=== PATIENT | female | born 1995 | race Caucasian/White ===

== ENCOUNTER 2019-01-21 07:00 | Inpatient (IN) | payer OTHER ==
[2019-01-21] MEDS ORDERED: Sodium Chloride 0.9% 10 ML Syringe FLUSH PRN (07:43)
[2019-01-21] MEDS ORDERED: Ondansetron 4 MG/2 ML SDV IVPUSH PRN (07:43)
[2019-01-21] MEDS ORDERED: Nalbuphine 20 MG/ML 1 ML Syringe IVPUSH PRN (07:43)
[2019-01-21] MEDS ORDERED: Oxytocin/Lactated Ringers 10 UNIT/1,000 ML BAG IV SCH ×2 (07:45)
[2019-01-21] MEDS: Lactated Ringers 1,000 ML IV SCH ×3 (08:01→11:55)
--- NOTE | 2019-01-21 08:49 | PCM.LDHP ---
L&D History of Present Illness - General Date of Service: 01/21/19 Admit Problem/Dx: Patient Status Order with Admit Dx/Problem 01/21/19 07:43 Patient Status [ADT] Routine Admission Diagnosis/Problem Admission Diagnosis/Problem Cholestasis during Source of Information: Patient History Limitations: Reports: No Limitations - History of Present Illness Introduction:: Patient is a 23 y/o at 36 1/7 who presents for IOL for cholestasis. doing well today. Continues to have severe itching on her feet. Notes good FM - Related Data Allergies/Adverse Reactions: Allergies Allergy/AdvReac Type Severity Reaction Status Date / Time No Known Allergies Allergy Verified 12/11/18 02:40 Home Medications: Home Meds Acetaminophen [Tylenol] 650 mg PO Q4H PRN 09/28/16 [History] Vit Calc,Iron,Folic [ Vitamins] 1 tab PO DAILY 09/28/16 [ History] Past Medical History Gastrointestinal History: Reports: Other (See Below) (Cholestasis of 2017) [employer] History: Reports: , Spontaneous : 3 Para: 1 LMP (Approximate): - Past Surgical History HEENT Surgical History: Reports: Tonsillectomy Social & Family History - Family History Family Medical History: Noncontributory - Tobacco Use Smoking Status *Q: Never Smoker - Caffeine Use Caffeine Use: Reports: Soda - Alcohol Use Alcohol Use History: No - Recreational Drug Use Recreational Drug Use: No H&P Review of Systems - Review of Systems: Review Of Systems: See Below General: Reports: No Symptoms Pulmonary: Reports: No Symptoms Cardiovascular: Reports: No Symptoms Gastrointestinal: Reports: No Symptoms Genitourinary: Reports: No Symptoms Musculoskeletal: Reports: No Symptoms Skin: Reports: Pruritis (feet ) Neurological: Reports: No Symptoms L&D Exam - Exam Exam: See Below - Vital Signs Weight: 74.525 kg - OB Specific Contraction Intensity: Irritability Movement: Active Heart Tones: Present Heart Tones per Min: 140 Heart Rate (FHR) Variability: Moderate (6-25 bmp) Presentation: Vertex - Lobo Score Lobo Score Cervix Position: Posterior Lobo Score Consistency: Soft Lobo Score Effacement: 51-70% Lobo Score Dilation: 1-2 cm Lobo Score 's Station: -2 Lobo Score Total: 6 - Exam General: Alert, Oriented, Cooperative Lungs: Clear to Auscultation, Normal Respiratory Effort Cardiovascular: Regular Rate, Regular Rhythm GI/Abdominal Exam: Soft, Non-Tender Genitourinary: Normal external exam Extremities: Normal Inspection Skin: Warm, Dry, Intact - Patient Data Lab Results Last 24 hrs: Laboratory Results - last 24 hr 01/21/19 01/21/19 Range/Units 07:56 07:56 WBC 11.29 H (3.98-10.04) K/mm3 RBC 4.41 (3.98-5.22) M/mm3 Hgb 12.8 (11.2-15.7) gm/L Hct 38.4 (34.1-44.9) % MCV 87.1 (79.4-94.8) fl MCH 29.0 (25.6-32.2) pg MCHC 33.3 (32.2-35.5) g/dl RDW Std Deviation 43.0 (36.4-46.3) fL Plt Count 238 (182-369) K/mm3 MPV 11.2 (9.4-12.3) fl Sodium 137 (136-145) mEq/L Potassium 3.4 L (3.5-5.1) mEq/L Chloride 102 (98-107) mEq/L Carbon Dioxide 20 L (21-32) mEq/L Anion Gap 18.4 H (5-15) BUN 12 (7-18) mg/dL Creatinine 0.9 (0.55-1.02) mg/dL Est Cr Clr Drug Dosing TNP Estimated GFR (MDRD) > 60 (>60) mL/min BUN/Creatinine Ratio 13.3 L (14-18) Glucose 146 H (74-106) mg/dL Calcium 8.9 (8.5-10.1) mg/dL Total Bilirubin 0.6 (0.2-1.0) mg/dL AST 673 H (15-37) U/L ALT 853 H (14-59) U/L Alkaline Phosphatase 115 (46-116) U/L Total Protein 6.8 (6.4-8.2) g/dl Albumin 2.7 L (3.4-5.0) g/dl Globulin 4.1 gm/dL Albumin/Globulin Ratio 0.7 L (1-2) Result Diagrams: 01/21/19 07:56 01/21/19 07:56 - Problem List (1) 36 weeks gestation of SNOMED Code(s): 80076097 ICD Code: Z3A.36 - 36 WEEKS GESTATION OF Status: Acute Current Visit: Yes (2) Cholestasis during SNOMED Code(s): 901956894 ICD Code: O26.619 - LIVER AND BILIARY TRACT DISORD IN , UNSP TRIMESTER; K83.1 - OBSTRUCTION OF BILE DUCT Status: Acute Current Visit: Yes Qualifiers: Trimester: third trimester Qualified Code(s): O26.613 - Liver and biliary tract disorders in , third trimester; K83.1 - Obstruction of bile duct Problem List Initiated/Reviewed/Updated: Yes Orders Last 24hrs: Active Orders 24 hr Category Date Time Status Patient Status [ADT] Routine ADT 01/21/19 07:43 Active Communication Order [RC] ASDIRECTED Care 01/21/19 07:43 Active Communication Order [RC] ASDIRECTED Care 01/21/19 07:43 Active Communication Order [RC] ASDIRECTED Care 01/21/19 07:43 Active Heart Tones [RC] ASDIRECTED Care 01/21/19 07:43 Active Non Stress Test [RC] PER UNIT ROUTINE Care 01/21/19 07:43 Active Notify Provider [RC] ASDIRECTED Care 01/21/19 07:43 Active Notify Provider [RC] PRN Care 01/21/19 07:43 Active Peripheral IV Care [RC] . DIRECTED Care 01/21/19 07:43 Active Up ad Merry [RC] ASDIRECTED Care 01/21/19 07:44 Active Vaginal Exam [RC] ASDIRECTED Care 01/21/19 07:43 Active Vital Signs [RC] ASDIRECTED Care 01/21/19 07:43 Active Regular Diet [DIET] Diet 01/21/19 Breakfast Active RAPID PLASMA REAGIN,RPR [CHEM] Routine Lab 01/21/19 07:56 Received TYPE AND SCREEN [BBK] Routine Lab 01/21/19 07:56 Received Lactated Ringers [Ringers, Lactated] 1,000 ml Med 01/21/19 07:45 Active IV ASDIRECTED Nalbuphine [Nubain] Med 01/21/19 07:43 Active 10 mg IVPUSH Q2H PRN Ondansetron [Zofran] Med 01/21/19 07:43 Active 4 mg IVPUSH Q4H PRN Oxytocin/Lactated Ringers [Pitocin in LR 10 Units/1,000 Med 01/21/19 07:45 Active ML] 10 unit in 1,000 ml IV .CONTINUOUS Oxytocin/Lactated Ringers [Pitocin in LR 10 Units/1,000 Med 01/21/19 07:45 Active ML] 10 unit in 1,000 ml IV TITRATE Sodium Chloride 0.9% [Saline Flush] Med 01/21/19 07:43 Active 10 ml FLUSH ASDIRECTED PRN Electronic Heart Tones Ext w TOCO [WOMSER] Ot 01/21/19 07:43 Ordered Routine Electronic Heart Tones Internal [WOMSER] Per Unit Ot 01/21/19 07:43 Ordered Routine Peripheral IV Insertion Adult [OM.PC] Routine Ot 01/21/19 07:43 Ordered Resuscitation Status Routine Resus Stat 01/21/19 07:43 Ordered Medication Orders Lactated Ringer's (Ringers, Lactated) 1,000 mls @ 40 mls/hr IV ASDIRECTED RADHA Last Admin: 01/21/19 08:01 Dose: 40 mls/hr Oxytocin/Lactated Ringer's (Pitocin In Lr 10 Units/1,000 Ml) 10 unit in 1,000 mls @ 12 mls/hr IV TITRATE RADHA; Protocol Last Admin: 01/21/19 08:02 Dose: 2 munits/min, 12 mls/hr Oxytocin/Lactated Ringer's (Pitocin In Lr 10 Units/1,000 Ml) 10 unit in 1,000 mls @ 500 mls/hr IV .CONTINUOUS RADHA Nalbuphine HCl (Nubain) 10 mg IVPUSH Q2H PRN PRN Reason: pain Ondansetron HCl (Zofran) 4 mg IVPUSH Q4H PRN PRN Reason: Nausea/Vomiting Sodium Chloride (Saline Flush) 10 ml FLUSH ASDIRECTED PRN PRN Reason: Keep Vein Open Assessment/Plan Comment:: 23 y/o at 36 1/7 wks who presents for IOL for cholestasis of * Labs on admission including CMP * GBS negative, no need for antibiotics * Pain management per patient preference * Rouse bulb and pitocin for IOL, AROM when able * Anticipate
[2019-01-21] MEDS ORDERED: diphenhydrAMINE 50 MG/ML SDV IVPUSH PRN (08:56)
[2019-01-21] MEDS ORDERED: fentaNYL/Bupivacaine-NS 2 MCG/ML-0.125%/PF 100 ML Bag EPIDUR PRN (08:56)
[2019-01-21] MEDS ORDERED: fentaNYL 100 MCG/2 ML SDV EPIDUR PRN (08:56)
[2019-01-21] MEDS ORDERED: ePHEDrine 50 MG/ML SDV IVPUSH PRN (08:56)
--- NOTE | 2019-01-21 08:56 | PCM.PREANE ---
Preanesthetic Assessment - Procedure Proposed Procedure: clem - Anesthesia/Transfusion/Family Hx Anesthesia History: Prior Anesthesia Without Reaction Family History of Anesthesia Reaction: No Transfusion History: No Prior Transfusion(s) Type of Transfusion Reactions: Reports: Unknown - Review of Systems General: No Symptoms Pulmonary: No Symptoms, Shortness of Breath (due to baby) Cardiovascular: No Symptoms Gastrointestinal: No Symptoms Neurological: No Symptoms Other: Reports: None - Physical Assessment Pulse: 86 O2 Sat by Pulse Oximetry: 99 Respiratory Rate: 20 Blood Pressure: 104/67 Height: 5 ft 2 in Weight: 74.525 kg ASA Class: 2 Mental Status: Alert & Oriented x3 Airway Class: Mallampati = 1 Dentition: Reports: Normal Dentition Thyro-Mental Finger Breadths: 3 Mouth Opening Finger Breadths: 3 ROM/Head Extension: Full Lungs: Clear to Auscultation, Normal Respiratory Effort Cardiovascular: Regular Rate, Regular Rhythm - Lab Values: Laboratory Last Values WBC 11.29 K/mm3 (3.98-10.04) H 01/21/19 07:56 RBC 4.41 M/mm3 (3.98-5.22) 01/21/19 07:56 Hgb 12.8 gm/L (11.2-15.7) 01/21/19 07:56 Hct 38.4 % (34.1-44.9) 01/21/19 07:56 MCV 87.1 fl (79.4-94.8) 01/21/19 07:56 MCH 29.0 pg (25.6-32.2) 01/21/19 07:56 MCHC 33.3 g/dl (32.2-35.5) 01/21/19 07:56 RDW Std Deviation 43.0 fL (36.4-46.3) 01/21/19 07:56 Plt Count 238 K/mm3 (182-369) 01/21/19 07:56 MPV 11.2 fl (9.4-12.3) 01/21/19 07:56 Sodium 137 mEq/L (136-145) 01/21/19 07:56 Potassium 3.4 mEq/L (3.5-5.1) L 01/21/19 07:56 Chloride 102 mEq/L (98-107) 01/21/19 07:56 Carbon Dioxide 20 mEq/L (21-32) L 01/21/19 07:56 Anion Gap 18.4 (5-15) H 01/21/19 07:56 BUN 12 mg/dL (7-18) 01/21/19 07:56 Creatinine 0.9 mg/dL (0.55-1.02) 01/21/19 07:56 Est Cr Clr Drug Dosing TNP 01/21/19 07:56 Estimated GFR (MDRD) > 60 mL/min (>60) 01/21/19 07:56 BUN/Creatinine Ratio 13.3 (14-18) L 01/21/19 07:56 Glucose 146 mg/dL (74-106) H 01/21/19 07:56 Calcium 8.9 mg/dL (8.5-10.1) 01/21/19 07:56 Total Bilirubin 0.6 mg/dL (0.2-1.0) 01/21/19 07:56 AST 673 U/L (15-37) H 01/21/19 07:56 ALT 853 U/L (14-59) H 01/21/19 07:56 Alkaline Phosphatase 115 U/L (46-116) 01/21/19 07:56 Total Protein 6.8 g/dl (6.4-8.2) 01/21/19 07:56 Albumin 2.7 g/dl (3.4-5.0) L 01/21/19 07:56 Globulin 4.1 gm/dL 01/21/19 07:56 Albumin/Globulin Ratio 0.7 (1-2) L 01/21/19 07:56 - Allergies Allergies/Adverse Reactions: Allergies Allergy/AdvReac Type Severity Reaction Status Date / Time No Known Allergies Allergy Verified 12/11/18 02:40 - Blood Blood Available: No - Acknowledgements Anesthesia Type Planned: Epidural Pt an Appropriate Candidate for the Planned Anesthesia: Yes Alternatives and Risks of Anesthesia Discussed w Pt/Guardian: Yes Pt/Guardian Understands and Agrees with Anesthesia Plan: Yes PreAnesthesia Questionnaire Cardiovascular History: Reports: None Respiratory History: Reports: None Gastrointestinal History: Reports: GERD (with ), Other (See Below) ( Cholestasis of 2017) [employer] History: Reports: , Spontaneous : 2 (36 weeks) Para: 1 Musculoskeletal History: Reports: None - Past Surgical History HEENT Surgical History: Reports: Tonsillectomy - SUBSTANCE USE Smoking Status *Q: Never Smoker Tobacco Use Within Last Twelve Months: No Second Hand Smoke Exposure: No Days Per Week of Alcohol Use: 0 Recreational Drug Use History: No - HOME MEDS Home Medications: Home Meds Acetaminophen [Tylenol] 650 mg PO Q4H PRN 09/28/16 [History] Vit Calc,Iron,Folic [ Vitamins] 1 tab PO DAILY 09/28/16 [ History] - CURRENT (IN HOUSE) MEDS Current Meds: Current Medications Lactated Ringer's (Ringers, Lactated) 1,000 mls @ 40 mls/hr IV ASDIRECTED RADHA Last Admin: 01/21/19 08:01 Dose: 40 mls/hr Oxytocin/Lactated Ringer's (Pitocin In Lr 10 Units/1,000 Ml) 10 unit in 1,000 mls @ 12 mls/hr IV TITRATE RADHA; Protocol Last Admin: 01/21/19 08:02 Dose: 2 munits/min, 12 mls/hr Oxytocin/Lactated Ringer's (Pitocin In Lr 10 Units/1,000 Ml) 10 unit in 1,000 mls @ 500 mls/hr IV .CONTINUOUS RADHA Nalbuphine HCl (Nubain) 10 mg IVPUSH Q2H PRN PRN Reason: pain Ondansetron HCl (Zofran) 4 mg IVPUSH Q4H PRN PRN Reason: Nausea/Vomiting Sodium Chloride (Saline Flush) 10 ml FLUSH ASDIRECTED PRN PRN Reason: Keep Vein Open
--- NOTE | 2019-01-21 11:39 | PCM.PNLD ---
Labor Progress Note - VS & Meds Vital Signs: Last Vital Signs Temp 36.7 C 01/21/19 07:43 Pulse 86 01/21/19 08:56 Resp 20 01/21/19 08:56 BP 104/67 01/21/19 08:56 Pulse Ox 99 01/21/19 08:56 Active Medications: Current Medications Diphenhydramine HCl (Benadryl) 25 mg IVPUSH Q6H PRN PRN Reason: pruritis Ephedrine Sulfate (Ephedrine Sulfate) 5 mg IVPUSH ASDIRECTED PRN PRN Reason: Hypotension Fentanyl (Sublimaze) 100 mcg EPIDUR Q3H PRN PRN Reason: Pain Last Admin: 01/21/19 11:18 Dose: 100 mcg Fentanyl/Bupivacaine HCl (Vlnyltgs-Pijrx-Eh 2 Mcg/Ml-0.125%) 100 ml EPIDUR ONETIME PRN PRN Reason: Pain Last Admin: 01/21/19 11:18 Dose: 100 ml Lactated Ringer's (Ringers, Lactated) 1,000 mls @ 40 mls/hr IV ASDIRECTED RADHA Last Admin: 01/21/19 08:01 Dose: 40 mls/hr Oxytocin/Lactated Ringer's (Pitocin In Lr 10 Units/1,000 Ml) 10 unit in 1,000 mls @ 12 mls/hr IV TITRATE RADHA; Protocol Last Titration: 01/21/19 09:15 Dose: 5 munits/min, 30 mls/hr Oxytocin/Lactated Ringer's (Pitocin In Lr 10 Units/1,000 Ml) 10 unit in 1,000 mls @ 500 mls/hr IV .CONTINUOUS RADHA Nalbuphine HCl (Nubain) 10 mg IVPUSH Q2H PRN PRN Reason: pain Ondansetron HCl (Zofran) 4 mg IVPUSH Q4H PRN PRN Reason: Nausea/Vomiting Sodium Chloride (Saline Flush) 10 ml FLUSH ASDIRECTED PRN PRN Reason: Keep Vein Open - Uterine Contractions Uterine Monitoring Mode: External [place] Contraction Intensity: Moderate to Strong - Monitoring Monitor Mode: External Ultrasound Heart Rate (FHR) Baseline: 120 Heart Rate (FHR) Variability: Moderate (6-25 bmp) Accelerations: Present, 15x15 Decelerations: None Strip Review: Category I - Vaginal Exam Dilation (cm): 4-5 Effacement (Percent): 60 Station: -2 Cervical Position: Posterior - Labor Progress (Free Text) Labor Progress: Doing well. Comfortable with epidural in place. Rouse bulb removed. AROM performed with release of clear fluid. Continue present management
--- NOTE | 2019-01-21 13:19 | PCM.PNLD ---
Labor Progress Note - VS & Meds Vital Signs: Last Vital Signs Temp 36.7 C 01/21/19 07:43 Pulse 86 01/21/19 08:56 Resp 20 01/21/19 08:56 BP 104/67 01/21/19 08:56 Pulse Ox 99 01/21/19 08:56 Active Medications: Current Medications Diphenhydramine HCl (Benadryl) 25 mg IVPUSH Q6H PRN PRN Reason: pruritis Last Admin: 01/21/19 11:54 Dose: 25 mg Ephedrine Sulfate (Ephedrine Sulfate) 5 mg IVPUSH ASDIRECTED PRN PRN Reason: Hypotension Fentanyl (Sublimaze) 100 mcg EPIDUR Q3H PRN PRN Reason: Pain Last Admin: 01/21/19 11:18 Dose: 100 mcg Fentanyl/Bupivacaine HCl (Pzlovunv-Wojvq-Fn 2 Mcg/Ml-0.125%) 100 ml EPIDUR ONETIME PRN PRN Reason: Pain Last Admin: 01/21/19 11:18 Dose: 100 ml Lactated Ringer's (Ringers, Lactated) 1,000 mls @ 40 mls/hr IV ASDIRECTED RADHA Last Admin: 01/21/19 11:55 Dose: 40 mls/hr Oxytocin/Lactated Ringer's (Pitocin In Lr 10 Units/1,000 Ml) 10 unit in 1,000 mls @ 12 mls/hr IV TITRATE RADHA; Protocol Last Titration: 01/21/19 09:15 Dose: 5 munits/min, 30 mls/hr Oxytocin/Lactated Ringer's (Pitocin In Lr 10 Units/1,000 Ml) 10 unit in 1,000 mls @ 500 mls/hr IV .CONTINUOUS RADHA Nalbuphine HCl (Nubain) 10 mg IVPUSH Q2H PRN PRN Reason: pain Ondansetron HCl (Zofran) 4 mg IVPUSH Q4H PRN PRN Reason: Nausea/Vomiting Sodium Chloride (Saline Flush) 10 ml FLUSH ASDIRECTED PRN PRN Reason: Keep Vein Open - Uterine Contractions Uterine Monitoring Mode: External [place] Contraction Intensity: Moderate to Strong - Monitoring Monitor Mode: External Ultrasound Heart Rate (FHR) Baseline: 125 Heart Rate (FHR) Variability: Moderate (6-25 bmp) Accelerations: Present, 15x15 Decelerations: Early Strip Review: Category I - Vaginal Exam Dilation (cm): 8 Effacement (Percent): 75 Station: 0 Cervical Position: Midposition - Labor Progress (Free Text) Labor Progress: Doing well. Comfortable with epidural. Continue present management
--- NOTE | 2019-01-21 14:02 | PCM.DEL ---
L & D Note - General Info Date of Service: 01/21/19 - Delivery Note Labor: Induced by ARM, Induced by Oxytocin Delivery Outcome: Livebirth Infant Delivery Method: Spontaneous Vaginal Delivery-Single Infant Delivery Mode: Spontaneous Presentation: Right Occiput Anterior (MARIYA) Nuchal Cord: None Anesthesia Type: Epidural Amniotic Fluid Description: Clear Episiotomy Type: None Laceration: 2nd Degree, Perineal Suture type: Vicryl Suture size: 2-0 Placenta: Intact, Spontaneous Cord: 3 Vessels Estimated Blood Loss: 100 : Suctioned, Bulb Syringe, Stimulated, Warmed, [place] Used, Warmer Used Delivery Comments (Free Text/Narrative):: Patient found to be complete and began pushing. With maternal pushing effort head delivered from an MARIYA presentation. No nuchal cord present. With gentle downward traction the shoulders and body delivered. Infant placed on maternal abdomen. Cord clamped and cut. Cord blood obtained. Placenta allowed time to separate and expelled intact. Inspection of the perineum showed a small 2nd degree laceration repaired with a 2-0 vicryl in the typical fashion - General Info Date of Service: 01/21/19 - Patient Data Vitals - Most Recent: Last Vital Signs Temp 36.7 C 01/21/19 07:43 Pulse 86 01/21/19 08:56 Resp 20 01/21/19 08:56 BP 104/67 01/21/19 08:56 Pulse Ox 99 01/21/19 08:56 Weight - Most Recent: 74.525 kg Lab Results Last 24 Hours: Laboratory Results - last 24 hr 01/21/19 01/21/19 01/21/19 Range/Units 07:56 07:56 07:56 WBC 11.29 H (3.98-10.04) K/mm3 RBC 4.41 (3.98-5.22) M/mm3 Hgb 12.8 (11.2-15.7) gm/L Hct 38.4 (34.1-44.9) % MCV 87.1 (79.4-94.8) fl MCH 29.0 (25.6-32.2) pg MCHC 33.3 (32.2-35.5) g/dl RDW Std Deviation 43.0 (36.4-46.3) fL Plt Count 238 (182-369) K/mm3 MPV 11.2 (9.4-12.3) fl Sodium 137 (136-145) mEq/L Potassium 3.4 L (3.5-5.1) mEq/L Chloride 102 (98-107) mEq/L Carbon Dioxide 20 L (21-32) mEq/L Anion Gap 18.4 H (5-15) BUN 12 (7-18) mg/dL Creatinine 0.9 (0.55-1.02) mg/dL Est Cr Clr Drug Dosing TNP Estimated GFR (MDRD) > 60 (>60) mL/min BUN/Creatinine Ratio 13.3 L (14-18) Glucose 146 H (74-106) mg/dL Calcium 8.9 (8.5-10.1) mg/dL Total Bilirubin 0.6 (0.2-1.0) mg/dL AST 673 H (15-37) U/L ALT 853 H (14-59) U/L Alkaline Phosphatase 115 (46-116) U/L Total Protein 6.8 (6.4-8.2) g/dl Albumin 2.7 L (3.4-5.0) g/dl Globulin 4.1 gm/dL Albumin/Globulin Ratio 0.7 L (1-2) Blood Type A POSITIVE Gel Antibody Screen Negative Med Orders - Current: Current Medications Diphenhydramine HCl (Benadryl) 25 mg IVPUSH Q6H PRN PRN Reason: pruritis Last Admin: 01/21/19 11:54 Dose: 25 mg Ephedrine Sulfate (Ephedrine Sulfate) 5 mg IVPUSH ASDIRECTED PRN PRN Reason: Hypotension Fentanyl (Sublimaze) 100 mcg EPIDUR Q3H PRN PRN Reason: Pain Last Admin: 01/21/19 11:18 Dose: 100 mcg Fentanyl/Bupivacaine HCl (Zubgusbu-Qvgjm-An 2 Mcg/Ml-0.125%) 100 ml EPIDUR ONETIME PRN PRN Reason: Pain Last Admin: 01/21/19 11:18 Dose: 100 ml Lactated Ringer's (Ringers, Lactated) 1,000 mls @ 40 mls/hr IV ASDIRECTED RADHA Last Admin: 01/21/19 11:55 Dose: 40 mls/hr Oxytocin/Lactated Ringer's (Pitocin In Lr 10 Units/1,000 Ml) 10 unit in 1,000 mls @ 12 mls/hr IV TITRATE RADHA; Protocol Last Titration: 01/21/19 09:15 Dose: 5 munits/min, 30 mls/hr Oxytocin/Lactated Ringer's (Pitocin In Lr 10 Units/1,000 Ml) 10 unit in 1,000 mls @ 500 mls/hr IV .CONTINUOUS RADHA Nalbuphine HCl (Nubain) 10 mg IVPUSH Q2H PRN PRN Reason: pain Ondansetron HCl (Zofran) 4 mg IVPUSH Q4H PRN PRN Reason: Nausea/Vomiting Sodium Chloride (Saline Flush) 10 ml FLUSH ASDIRECTED PRN PRN Reason: Keep Vein Open - Problem List & Annotations (1) 36 weeks gestation of SNOMED Code(s): 94004136 Code(s): Z3A.36 - 36 WEEKS GESTATION OF Status: Acute Current Visit: Yes (2) Cholestasis during SNOMED Code(s): 543612410 Code(s): O26.619 - LIVER AND BILIARY TRACT DISORD IN , UNSP TRIMESTER; K83.1 - OBSTRUCTION OF BILE DUCT Status: Acute Current Visit: Yes Qualifiers: Trimester: third trimester Qualified Code(s): O26.613 - Liver and biliary tract disorders in , third trimester; K83.1 - Obstruction of bile duct (3) Vaginal delivery SNOMED Code(s): 833851197 Code(s): O80 - ENCOUNTER FOR FULL-TERM UNCOMPLICATED DELIVERY Status: Acute Current Visit: No - Problem List Review Problem List Initiated/Reviewed/Updated: Yes - My Orders Last 24 Hours: My Active Orders 01/21/19 07:43 Patient Status [ADT] Routine Communication Order [RC] ASDIRECTED Communication Order [RC] ASDIRECTED Communication Order [RC] ASDIRECTED Heart Tones [RC] ASDIRECTED Non Stress Test [RC] PER UNIT ROUTINE Notify Provider [RC] ASDIRECTED Notify Provider [RC] PRN Peripheral IV Care [RC] . DIRECTED Vaginal Exam [RC] ASDIRECTED Vital Signs [RC] ASDIRECTED Nalbuphine [Nubain] 10 mg IVPUSH Q2H PRN Ondansetron [Zofran] 4 mg IVPUSH Q4H PRN Sodium Chloride 0.9% [Saline Flush] 10 ml FLUSH ASDIRECTED PRN Electronic Heart Tones Ext w TOCO [WOMSER] Routine Electronic Heart Tones Internal [WOMSER] Per Unit Routine Peripheral IV Insertion Adult [OM.PC] Routine Resuscitation Status Routine 01/21/19 07:44 Up ad Merry [RC] ASDIRECTED 01/21/19 07:45 Lactated Ringers [Ringers, Lactated] 1,000 ml IV ASDIRECTED Oxytocin/Lactated Ringers [Pitocin in LR 10 Units/1,000 ML] 10 unit in 1,000 ml IV .CONTINUOUS Oxytocin/Lactated Ringers [Pitocin in LR 10 Units/1,000 ML] 10 unit in 1,000 ml IV TITRATE 01/21/19 07:56 RAPID PLASMA REAGIN,RPR [CHEM] Routine 01/21/19 13:56 Patient Status Manage Transfer [TRANSFER] Routine 01/21/19 Breakfast Regular Diet [DIET] - Assessment Assessment:: 23 y/o now PPD#0 from at 36 1/7 wks after IOL for cholestasis of - Plan Plan:: * Routine cares * Repeat LFT's in AM * Encourage breast feeding * Discharge home in 2 days
[2019-01-21] MEDS ORDERED: Witch Hazel Medicated Pads 40/Jar TOP PRN (14:44)
[2019-01-21] MEDS ORDERED: Benzocaine/Menthol 20%-0.5% Spray 56 GM Canister TOP PRN (14:44)
[2019-01-21] MEDS ORDERED: Docusate Sodium 100 MG Cap PO PRN (14:44)
[2019-01-21] MEDS ORDERED: Ibuprofen 600 MG Tab PO PRN (14:44)
[2019-01-21] MEDS ORDERED: Acetaminophen 325 MG Tab PO PRN (14:44)
[2019-01-21] MEDS ORDERED: Lanolin 100% Cream 7 GM Tube TOP PRN (14:44)
[2019-01-21] MEDS ORDERED: Bupivacaine 0.25% 10 ML SDV ONE (22:00)
--- NOTE | 2019-01-22 06:51 | PCM.PNPP ---
- General Info Date of Service: 01/22/19 Functional Status: Reports: Pain Controlled, Tolerating Diet, Ambulating, Urinating - Review of Systems General: Reports: No Symptoms Pulmonary: Reports: No Symptoms Cardiovascular: Reports: No Symptoms Gastrointestinal: Reports: No Symptoms Genitourinary: Reports: No Symptoms Musculoskeletal: Reports: No Symptoms Skin: Reports: Pruritis (improving since delivery) - Patient Data Vital Signs - Most Recent: Last Vital Signs Temp 36.9 C 01/22/19 03:57 Pulse 63 01/22/19 03:57 Resp 14 01/22/19 03:57 BP 101/77 01/22/19 03:57 Pulse Ox 99 01/22/19 03:57 Weight - Most Recent: 74.525 kg Lab Results - Last 24 Hours: Laboratory Results - last 24 hr 01/21/19 01/21/19 01/21/19 Range/Units 07:56 07:56 07:56 WBC 11.29 H (3.98-10.04) K/mm3 RBC 4.41 (3.98-5.22) M/mm3 Hgb 12.8 (11.2-15.7) gm/L Hct 38.4 (34.1-44.9) % MCV 87.1 (79.4-94.8) fl MCH 29.0 (25.6-32.2) pg MCHC 33.3 (32.2-35.5) g/dl RDW Std Deviation 43.0 (36.4-46.3) fL Plt Count 238 (182-369) K/mm3 MPV 11.2 (9.4-12.3) fl Sodium 137 (136-145) mEq/L Potassium 3.4 L (3.5-5.1) mEq/L Chloride 102 (98-107) mEq/L Carbon Dioxide 20 L (21-32) mEq/L Anion Gap 18.4 H (5-15) BUN 12 (7-18) mg/dL Creatinine 0.9 (0.55-1.02) mg/dL Est Cr Clr Drug Dosing TNP Estimated GFR (MDRD) > 60 (>60) mL/min BUN/Creatinine Ratio 13.3 L (14-18) Glucose 146 H (74-106) mg/dL Calcium 8.9 (8.5-10.1) mg/dL Total Bilirubin 0.6 (0.2-1.0) mg/dL AST 673 H (15-37) U/L ALT 853 H (14-59) U/L Alkaline Phosphatase 115 (46-116) U/L Total Protein 6.8 (6.4-8.2) g/dl Albumin 2.7 L (3.4-5.0) g/dl Globulin 4.1 gm/dL Albumin/Globulin Ratio 0.7 L (1-2) RPR Non-reactive (NONREACTIVE) Blood Type Gel Antibody Screen 01/21/19 Range/Units 07:56 WBC (3.98-10.04) K/mm3 RBC (3.98-5.22) M/mm3 Hgb (11.2-15.7) gm/L Hct (34.1-44.9) % MCV (79.4-94.8) fl MCH (25.6-32.2) pg MCHC (32.2-35.5) g/dl RDW Std Deviation (36.4-46.3) fL Plt Count (182-369) K/mm3 MPV (9.4-12.3) fl Sodium (136-145) mEq/L Potassium (3.5-5.1) mEq/L Chloride (98-107) mEq/L Carbon Dioxide (21-32) mEq/L Anion Gap (5-15) BUN (7-18) mg/dL Creatinine (0.55-1.02) mg/dL Est Cr Clr Drug Dosing Estimated GFR (MDRD) (>60) mL/min BUN/Creatinine Ratio (14-18) Glucose (74-106) mg/dL Calcium (8.5-10.1) mg/dL Total Bilirubin (0.2-1.0) mg/dL AST (15-37) U/L ALT (14-59) U/L Alkaline Phosphatase (46-116) U/L Total Protein (6.4-8.2) g/dl Albumin (3.4-5.0) g/dl Globulin gm/dL Albumin/Globulin Ratio (1-2) RPR (NONREACTIVE) Blood Type A POSITIVE Gel Antibody Screen Negative Med Orders - Current: Current Medications Acetaminophen (Tylenol) 650 mg PO Q4H PRN PRN Reason: mild pain or fever Benzocaine/Menthol (Dermoplast Pain Relief [place]) 0 gm TOP ASDIRECTED PRN PRN Reason: Perineal Comfort Measure Docusate Sodium (Colace) 100 mg PO BID PRN PRN Reason: Constipation Emollient Ointment (Lansinoh Hpa) 0 gm TOP ASDIRECTED PRN PRN Reason: Sore Nipples Ibuprofen (Motrin) 600 mg PO Q6H PRN PRN Reason: Mild pain or fever Last Admin: 01/22/19 04:00 Dose: 600 mg Witch Doris (Tucks) 1 pad TOP ASDIRECTED PRN PRN Reason: Perineal Comfort Measure Discontinued Medications Diphenhydramine HCl (Benadryl) 25 mg IVPUSH Q6H PRN PRN Reason: pruritis Last Admin: 01/21/19 11:54 Dose: 25 mg Ephedrine Sulfate (Ephedrine Sulfate) 5 mg IVPUSH ASDIRECTED PRN PRN Reason: Hypotension Fentanyl (Sublimaze) 100 mcg EPIDUR Q3H PRN PRN Reason: Pain Last Admin: 01/21/19 11:18 Dose: 100 mcg Fentanyl/Bupivacaine HCl (Geieolpf-Cbuzu-Ok 2 Mcg/Ml-0.125%) 100 ml EPIDUR ONETIME PRN PRN Reason: Pain Last Admin: 01/21/19 11:18 Dose: 100 ml Lactated Ringer's (Ringers, Lactated) 1,000 mls @ 40 mls/hr IV ASDIRECTED RADHA Last Admin: 01/21/19 11:55 Dose: 40 mls/hr Oxytocin/Lactated Ringer's (Pitocin In Lr 10 Units/1,000 Ml) 10 unit in 1,000 mls @ 12 mls/hr IV TITRATE RADHA; Protocol Last Titration: 01/21/19 13:40 Dose: 999 munits/min, 5,994 mls/hr Oxytocin/Lactated Ringer's (Pitocin In Lr 10 Units/1,000 Ml) 10 unit in 1,000 mls @ 500 mls/hr IV .CONTINUOUS RADHA Nalbuphine HCl (Nubain) 10 mg IVPUSH Q2H PRN PRN Reason: pain Ondansetron HCl (Zofran) 4 mg IVPUSH Q4H PRN PRN Reason: Nausea/Vomiting Sodium Chloride (Saline Flush) 10 ml FLUSH ASDIRECTED PRN PRN Reason: Keep Vein Open - Infant Interaction Disposition, : in Room with Family Infant Interaction: Holding Infant Feeding: Attempted ; Nursed Fair/Poor (pumping as well) Support Person: - Recovery Exam Fundal Tone: Firm Fundal Level: 2 Fingerbreadths Below Umbilicus Fundal Placement: Midline Lochia Amount: Scant Lochia Color: Rubra/Red Perineum Description: Other (see below) Other Perinuem Description: 2nd degree lac w/repair Episiotomy/Laceration: Approximated Bladder Status: Nonpalpable, Voiding Urinary Elimination: Voided - Exam General: Alert, Oriented, Cooperative GI/Abdominal Exam: Soft, Non-Tender Extremities: Normal Inspection Skin: Warm, Dry, Intact - Problem List & Annotations (1) 36 weeks gestation of SNOMED Code(s): 56013568 Code(s): Z3A.36 - 36 WEEKS GESTATION OF Status: Acute Current Visit: Yes (2) Cholestasis during SNOMED Code(s): 904154991 Code(s): O26.619 - LIVER AND BILIARY TRACT DISORD IN , UNSP TRIMESTER; K83.1 - OBSTRUCTION OF BILE DUCT Status: Acute Current Visit: Yes Qualifiers: Trimester: third trimester Qualified Code(s): O26.613 - Liver and biliary tract disorders in , third trimester; K83.1 - Obstruction of bile duct (3) Vaginal delivery SNOMED Code(s): 801549960 Code(s): O80 - ENCOUNTER FOR FULL-TERM UNCOMPLICATED DELIVERY Status: Acute Current Visit: No - Problem List Review Problem List Initiated/Reviewed/Updated: Yes - My Orders Last 24 Hours: My Active Orders 01/21/19 07:43 Heart Tones [RC] ASDIRECTED Vaginal Exam [RC] ASDIRECTED Resuscitation Status Routine 01/21/19 14:44 Activity as Tolerated [RC] PER UNIT ROUTINE Vital Signs [RC] 03,09,15,21 Acetaminophen [Tylenol] 650 mg PO Q4H PRN Benzocaine/Menthol [Dermoplast Pain Relief [place]] See Dose Instructions TOP ASDIRECTED PRN Docusate Sodium [Colace] 100 mg PO BID PRN Ibuprofen [Motrin] 600 mg PO Q6H PRN Lanolin [Lansinoh HPA] See Dose Instructions TOP ASDIRECTED PRN Witch Doris [Tucks] 1 pad TOP ASDIRECTED PRN Assess Lochia [WOMSER] Per Unit Routine Assess Uterine Involution [WOMSER] Per Unit Routine Breast Pump [WOMSER] Per Unit Routine Heat Therapy [OM.PC] PRN Ice Therapy [OM.PC] Per Unit Routine Perineal Care [OM.PC] Per Unit Routine Peripheral IV Discontinue [OM.PC] Routine Sitz Bath [OM.PC] Per Unit Routine 01/21/19 Lunch Regular Diet [DIET] 01/22/19 05:11 ALANINE AMINOTRANSFERASE,ALT [CHEM] AM ASPARTATE AMNIOTRANSFERASE,AST [CHEM] AM 01/22/19 14:44 Heat Therapy [OM.PC] PRN - Assessment Assessment:: 23 y/o now PPD#1 from at 36 1/7 wks after IOL for cholestasis of - Plan Plan:: * Routine cares * Repeat LFT's pending from this AM * Encourage breast feeding * Discharge home tomorrow
--- NOTE | 2019-01-22 07:34 | PCM48HPAN ---
Post Anesthesia Note - EVALUATION WITHIN 48HRS OF ANESTHETIC Vital Signs in Normal Range: Yes Patient Participated in Evaluation: Yes Respiratory Function Stable: Yes Airway Patent: Yes Cardiovascular Function Stable: Yes Hydration Status Stable: Yes Pain Control Satisfactory: Yes Nausea and Vomiting Control Satisfactory: Yes Mental Status Recovered: Yes
--- NOTE | 2019-01-23 06:08 | PCM.PNPP ---
- General Info Date of Service: 01/23/19 Functional Status: Reports: Pain Controlled, Tolerating Diet, Ambulating, Urinating - Review of Systems General: Reports: No Symptoms Pulmonary: Reports: No Symptoms Cardiovascular: Reports: No Symptoms Gastrointestinal: Reports: No Symptoms Genitourinary: Reports: No Symptoms Musculoskeletal: Reports: No Symptoms Neurological: Reports: No Symptoms - Patient Data Vital Signs - Most Recent: Last Vital Signs Temp 36.8 C 01/23/19 05:28 Pulse 56 L 01/23/19 05:28 Resp 16 01/23/19 05:28 BP 112/64 01/23/19 05:28 Pulse Ox 98 01/23/19 05:28 Weight - Most Recent: 74.525 kg I&O - Last 24 Hours: Intake & Output 01/22/19 01/22/19 01/23/19 14:59 22:59 06:59 Intake Total 120 0 Balance 120 0 Lab Results - Last 24 Hours: Laboratory Results - last 24 hr 01/22/19 Range/Units 06:07 AST 337 H (15-37) U/L ALT 629 H (14-59) U/L Med Orders - Current: Current Medications Acetaminophen (Tylenol) 650 mg PO Q4H PRN PRN Reason: mild pain or fever Benzocaine/Menthol (Dermoplast Pain Relief [place]) 0 gm TOP ASDIRECTED PRN PRN Reason: Perineal Comfort Measure Docusate Sodium (Colace) 100 mg PO BID PRN PRN Reason: Constipation Last Admin: 01/22/19 20:11 Dose: 100 mg Emollient Ointment (Lansinoh Hpa) 0 gm TOP ASDIRECTED PRN PRN Reason: Sore Nipples Ibuprofen (Motrin) 600 mg PO Q6H PRN PRN Reason: Mild pain or fever Last Admin: 01/22/19 04:00 Dose: 600 mg Witch Doris (Tucks) 1 pad TOP ASDIRECTED PRN PRN Reason: Perineal Comfort Measure Discontinued Medications Diphenhydramine HCl (Benadryl) 25 mg IVPUSH Q6H PRN PRN Reason: pruritis Last Admin: 01/21/19 11:54 Dose: 25 mg Ephedrine Sulfate (Ephedrine Sulfate) 5 mg IVPUSH ASDIRECTED PRN PRN Reason: Hypotension Fentanyl (Sublimaze) 100 mcg EPIDUR Q3H PRN PRN Reason: Pain Last Admin: 01/21/19 11:18 Dose: 100 mcg Fentanyl/Bupivacaine HCl (Gmsfptds-Etgwm-Bv 2 Mcg/Ml-0.125%) 100 ml EPIDUR ONETIME PRN PRN Reason: Pain Last Admin: 01/21/19 11:18 Dose: 100 ml Lactated Ringer's (Ringers, Lactated) 1,000 mls @ 40 mls/hr IV ASDIRECTED RADHA Last Admin: 01/21/19 11:55 Dose: 40 mls/hr Oxytocin/Lactated Ringer's (Pitocin In Lr 10 Units/1,000 Ml) 10 unit in 1,000 mls @ 12 mls/hr IV TITRATE RADHA; Protocol Last Titration: 01/21/19 13:40 Dose: 999 munits/min, 5,994 mls/hr Oxytocin/Lactated Ringer's (Pitocin In Lr 10 Units/1,000 Ml) 10 unit in 1,000 mls @ 500 mls/hr IV .CONTINUOUS RADHA Nalbuphine HCl (Nubain) 10 mg IVPUSH Q2H PRN PRN Reason: pain Ondansetron HCl (Zofran) 4 mg IVPUSH Q4H PRN PRN Reason: Nausea/Vomiting Sodium Chloride (Saline Flush) 10 ml FLUSH ASDIRECTED PRN PRN Reason: Keep Vein Open - Interaction Disposition, : in Room with Family Infant Interaction: Holding Infant Infant Feeding: Attempted ; Nursed Fair/Poor (pumping as well) Support Person: - Recovery Exam Fundal Tone: Firm Fundal Level: 2 Fingerbreadths Below Umbilicus Fundal Placement: Midline Lochia Amount: Small Lochia Color: Rubra/Red Perineum Description: Other (see below) Other Perinuem Description: 2 nd degree repaired Episiotomy/Laceration: Approximated Bladder Status: Voiding Urinary Elimination: Voided - Exam General: Alert, Oriented, Cooperative GI/Abdominal Exam: Soft, Non-Tender Extremities: Normal Inspection Skin: Warm, Dry, Intact - Problem List & Annotations (1) 36 weeks gestation of SNOMED Code(s): 43937675 Code(s): Z3A.36 - 36 WEEKS GESTATION OF Status: Acute Current Visit: Yes (2) Cholestasis during SNOMED Code(s): 832620302 Code(s): O26.619 - LIVER AND BILIARY TRACT DISORD IN , UNSP TRIMESTER; K83.1 - OBSTRUCTION OF BILE DUCT Status: Acute Current Visit: Yes Qualifiers: Trimester: third trimester Qualified Code(s): O26.613 - Liver and biliary tract disorders in , third trimester; K83.1 - Obstruction of bile duct (3) Vaginal delivery SNOMED Code(s): 681826157 Code(s): O80 - ENCOUNTER FOR FULL-TERM UNCOMPLICATED DELIVERY Status: Acute Current Visit: No - Problem List Review Problem List Initiated/Reviewed/Updated: Yes - My Orders Last 24 Hours: My Active Orders 01/22/19 14:44 Heat Therapy [OM.PC] PRN 01/23/19 06:07 Ready for Discharge [RC] PER UNIT ROUTINE - Assessment Assessment:: 23 y/o now PPD#2 from at 36 1/7 wks after IOL for cholestasis of - Plan Plan:: * Routine cares * Encourage breast feeding * Discharge home today. Baby boy likely to stay in patient for further observation
--- NOTE | 2019-01-23 06:08 | PCM.DCSUM1 ---
Discharge Summary - Discharge Data Discharge Date: 01/23/19 Discharge Disposition: Home, Self-Care 01 Condition: Good - Discharge Diagnosis/Problem(s) (1) 36 weeks gestation of SNOMED Code(s): 01186177 ICD Code: Z3A.36 - 36 WEEKS GESTATION OF Status: Acute Current Visit: Yes (2) Cholestasis during SNOMED Code(s): 016107140 ICD Code: O26.619 - LIVER AND BILIARY TRACT DISORD IN , UNSP TRIMESTER; K83.1 - OBSTRUCTION OF BILE DUCT Status: Acute Current Visit: Yes Qualifiers: Trimester: third trimester Qualified Code(s): O26.613 - Liver and biliary tract disorders in , third trimester; K83.1 - Obstruction of bile duct (3) Vaginal delivery SNOMED Code(s): 568776003 ICD Code: O80 - ENCOUNTER FOR FULL-TERM UNCOMPLICATED DELIVERY Status: Acute Current Visit: No - Patient Summary/Data Complications: None Consults: None Recommended Follow-up Testing/Procedures: Follow up in 3 weeks for check Hospital Course: Patient is a 23 y/o who presented at 36 1/7 wks for IOL for cholestasis of . Last assessed bile acids were 28. LFT"s on admission noted to be AST of 673 and ALT of 853. Induction done with pitocin, haji bulb, and eventually AROM. She progressed well to complete dilation and underwent an uncomplicated . AST down to 337 and ALT down to 629. No further laboratory testing done after PPD#1. She was eventually discharged on PPD#2 - Patient Instructions Diet: Regular Diet as Tolerated Activity: As Tolerated Activity, Other: Pelvic Rest for 6 weeks Driving: May Drive Today Showering/Bathing: May Shower Showering/Bathing, Other: May Bathe Notify Provider of: Fever, Increased Pain, Swelling and Redness, Drainage, Nausea and/or Vomiting - Discharge Plan *PRESCRIPTION DRUG MONITORING PROGRAM REVIEWED*: Not Applicable *COPY OF PRESCRIPTION DRUG MONITORING REPORT IN PATIENT MYRTLE: Not Applicable Home Medications: Home Meds Vit Calc,Iron,Folic [ Vitamins] 1 tab PO DAILY 09/28/16 [ History] Docusate Sodium [Colace] 100 mg PO BID PRN cap 01/22/19 [Rx] Ibuprofen [Motrin] 600 mg PO Q6H PRN tablet 01/22/19 [Rx] Referrals: Lillian Banda MD [Primary Care Provider] - (3 weeks for check) - Discharge Summary/Plan Comment DC Time >30 min.: No - Patient Data Vitals - Most Recent: Last Vital Signs Temp 36.8 C 01/23/19 05:28 Pulse 56 L 01/23/19 05:28 Resp 16 01/23/19 05:28 BP 112/64 01/23/19 05:28 Pulse Ox 98 01/23/19 05:28 Weight - Most Recent: 74.525 kg I&O - Last 24 hours: Intake & Output 01/22/19 01/22/19 01/23/19 14:59 22:59 06:59 Intake Total 120 0 Balance 120 0 Lab Results - Last 24 hrs: Laboratory Results - last 24 hr 01/22/19 Range/Units 06:07 AST 337 H (15-37) U/L ALT 629 H (14-59) U/L Med Orders - Current: Current Medications Acetaminophen (Tylenol) 650 mg PO Q4H PRN PRN Reason: mild pain or fever Benzocaine/Menthol (Dermoplast Pain Relief [place]) 0 gm TOP ASDIRECTED PRN PRN Reason: Perineal Comfort Measure Docusate Sodium (Colace) 100 mg PO BID PRN PRN Reason: Constipation Last Admin: 01/22/19 20:11 Dose: 100 mg Emollient Ointment (Lansinoh Hpa) 0 gm TOP ASDIRECTED PRN PRN Reason: Sore Nipples Ibuprofen (Motrin) 600 mg PO Q6H PRN PRN Reason: Mild pain or fever Last Admin: 01/22/19 04:00 Dose: 600 mg Witch Doris (Tucks) 1 pad TOP ASDIRECTED PRN PRN Reason: Perineal Comfort Measure Discontinued Medications Diphenhydramine HCl (Benadryl) 25 mg IVPUSH Q6H PRN PRN Reason: pruritis Last Admin: 01/21/19 11:54 Dose: 25 mg Ephedrine Sulfate (Ephedrine Sulfate) 5 mg IVPUSH ASDIRECTED PRN PRN Reason: Hypotension Fentanyl (Sublimaze) 100 mcg EPIDUR Q3H PRN PRN Reason: Pain Last Admin: 01/21/19 11:18 Dose: 100 mcg Fentanyl/Bupivacaine HCl (Ptyfyrmt-Ktiaw-Sv 2 Mcg/Ml-0.125%) 100 ml EPIDUR ONETIME PRN PRN Reason: Pain Last Admin: 01/21/19 11:18 Dose: 100 ml Lactated Ringer's (Ringers, Lactated) 1,000 mls @ 40 mls/hr IV ASDIRECTED RADHA Last Admin: 01/21/19 11:55 Dose: 40 mls/hr Oxytocin/Lactated Ringer's (Pitocin In Lr 10 Units/1,000 Ml) 10 unit in 1,000 mls @ 12 mls/hr IV TITRATE RADHA; Protocol Last Titration: 01/21/19 13:40 Dose: 999 munits/min, 5,994 mls/hr Oxytocin/Lactated Ringer's (Pitocin In Lr 10 Units/1,000 Ml) 10 unit in 1,000 mls @ 500 mls/hr IV .CONTINUOUS RADHA Nalbuphine HCl (Nubain) 10 mg IVPUSH Q2H PRN PRN Reason: pain Ondansetron HCl (Zofran) 4 mg IVPUSH Q4H PRN PRN Reason: Nausea/Vomiting Sodium Chloride (Saline Flush) 10 ml FLUSH ASDIRECTED PRN PRN Reason: Keep Vein Open
[2019-01-23 10:29] VITALS: BP 109/79
== END 2019-01-23 14:30 | disposition home or self-care (01) | DRG 805 ==
LOC: JD.OB 07:00 → OBSVTOIN 13:38 → JD.OB 13:38 → INTOOBSV 13:56 → OBSVTOIN 13:56
PROVIDERS: ADMIT Obstetrics & Gynecology; ATTEND Obstetrics & Gynecology
PROC: 6A550ZT Pheresis of Cord Blood Stem Cells, Single (ICD-10-PCS; principal; 2019-01-21)
PROC: 0U7C7ZZ Dilation of Cervix, Via Natural or Artificial Opening (ICD-10-PCS; principal; 2019-01-21)
PROC: 10907ZC Drainage of Amniotic Fluid, Therapeutic from Products of Conception, Via Natural or Artificial Opening (ICD-10-PCS; principal; 2019-01-21)
PROC: 10E0XZZ Delivery of Products of Conception, External Approach (ICD-10-PCS; principal; 2019-01-21)
PROC: 0KQM0ZZ Repair Perineum Muscle, Open Approach (ICD-10-PCS; principal; 2019-01-21)
PROC: 3E033VJ Introduction of Other Hormone into Peripheral Vein, Percutaneous Approach (ICD-10-PCS; principal; 2019-01-21)
PROC: 3E0R3BZ Introduction of Anesthetic Agent into Spinal Canal, Percutaneous Approach (ICD-10-PCS; 2019-01-21)
PROC: 00HU33Z Insertion of Infusion Device into Spinal Canal, Percutaneous Approach (ICD-10-PCS; 2019-01-21)
DX: O26.62 Liver and biliary tract disorders in childbirth (principal); K83.1 Obstruction of bile duct; Z37.0 Single live birth; O70.1 Second degree perineal laceration during delivery; Z3A.36 36 weeks gestation of pregnancy
CPT/HCPCS: 36415; 51702; 59025; 59409; 80053; 84450; 84460; 85027; 86592; 86850; 86900; 86901; A9270-GY; J1200; J2590; J3010; J3490; J7120